=== PATIENT | female | born 2000 | race Caucasian/White ===

== ENCOUNTER 2023-07-26 01:22 | Emergency (ER) | payer OTHER, SELFPAY ==
[2023-07-26 01:26] VITALS: BP 137/86; PULSE 80; RESP 16; TEMP 36.8; O2SAT 98; BMI 22.9
--- NOTE | 2023-07-26 01:50 | ED_ITS ---
HPI - General Adult General Chief complaint: Allergic Reaction Stated complaint: Allergic reaction Time Seen by Provider: 07/26/23 01:31 Source: patient Mode of arrival: ambulatory Limitations: no limitations History of Present Illness HPI narrative: 22-year-old female presents the emergency department with a slight swelling of her upper lip, nasal labial area. Swelling started at 8:00 p.m., it is currently 1:30 a.m.. There is no swelling inside the mouth, tongue, itching of the throat, swelling of the eyelids, difficulty swallowing or breathing difficulties. No hives or other skin changes noted. She has had reactions like this in the past and it has been suspected that she is sensitive to cat and animal dander. [place]. No obvious new food exposures. No known history of anaphylaxis. She does not have access to an EpiPen. She took 2 Benadryl at 11:00 p.m., about 2 hours prior to coming to the emergency room and did not notice any significant improvement. She has access to Benadryl and Zyrtec at home. She is a college soon but lives with boyfriend and has plenty of available help. Past medical history is benign, denies major long-term health problems. Only home medication is an oral contraceptive. No known drug allergies. ROS notable just for the slight upper lip swelling as above, otherwise denies times 12 systems. Related Data Home Medications Medication Instructions Recorded Confirmed albuterol sulfate 90 mcg/actuation 2 inh inhalation Q8H PRN 07/26/23 07/26/23 aerosol inhaler norethin-e.estradiol triphasic 07/26/23 Allergies Allergy/AdvReac Type Severity Reaction Status Date / Time No Known Drug Allergies Allergy Verified 07/26/23 01:33 Exam Const: Vital Signs, click to edit/add: Vital Signs - 24 hr 07/26/23 01:26 Temperature 98.3 F Pulse Rate [Pulse Oximeter] 80 Respiratory Rate 16 Blood Pressure [Le ft Upper Arm] 137/86 Pulse Oximetry 98 Oxygen Delivery Me thod Room Air Documenting provider has reviewed patient's vital signs: yes Common normals: no apparent distress and alert General appearance: cooperative and comfortable HENMT: Common normals: normocephalic and head/scalp atraumatic Head and scalp: normocephalic and atraumatic Mouth: oral and palatal mucosa normal Throat: posterior oropharynx normal Other: No swelling to the true lip, in oral cavity, tongue, gums, posterior pharynx, uvula. There is a slight swelling of the perioral area along the left nasal labial fold and above the lip. It extends very slightly onto the cheek. No redness. Jaws not affected. Jaw opens and closes normally. Nose not affected. Eye: Common normals: conjunctivae normal General eye: normal appearance of both eyes Conjunctiva: conjunctiva(e) normal Neck & C-Spine: Common normals: full ROM and no lymphadenopathy Resp: Common normals: normal respiratory effort, no use of accessory muscles and clear to auscultation bilaterally Effort & inspection: able to speak in complete sentences Auscultation: clear to auscultation bilaterally Cardio: Common normals: regular rate, regular rhythm, S1 normal heart sound, S2 normal heart sound and no murmurs Rate: regular rate Rhythm: regular rhythm Heart sounds: S1 normal and S2 normal Neuro: Sensorium/orientation: alert Speech: speech normal Motor exam: no movement abnormalities noted Psych: Common normals: thought process normal Attitude: engaged Activity/motor behavior: appropriate eye contact Thought process: normal thought process Insight: insight good Judgement: judgment good Skin: Common normals: no rashes or lesions noted Narrative: No hives, broken skin, redness. General skin exam: no rashes or lesions noted Course Course Hospital Course: Counseled patient on diagnosis, mild allergic reaction, likely oral ingest chin or more likely inhalational product as she does have a history of animal sensitivity. There are no signs of anaphylaxis. She has not had access to an EpiPen. Discussed that the reaction fluctuate somewhat over the next couple of days. Encouraged a nondrowsy antihistamine 2 tablets once daily such as Claritin, Leona or Zyrtec. Benadryl at bedtime for the next 5 nights with Benadryl every 6 hours p.r.n. for increase in swelling. Okay to apply ice. Activity, heat will make the reaction increased slightly. Alarm symptoms reviewed such as swelling of the tongue, throat, itching of the airway, difficulty breathing would all be reasons to come to the ED and or call 911 if necessary. She verbalizes understanding and agreement. Vital Signs Vital signs: Initial Vital Signs Temperature 98.3 F 07/26/23 01:26 Temperature Source Temporal Artery Scan 07/26/23 01:26 Pulse Rate 80 07/26/23 01:26 Respiratory Rate 16 07/26/23 01:26 Blood Pressure 137/86 07/26/23 01:26 Blood Pressure Mean 103 07/26/23 01:26 Blood Pressure Position Supine 07/26/23 01:26 Pulse Oximetry 98 07/26/23 01:26 Oxygen Delivery Method Room Air 07/26/23 01:26 Vital Signs Temperature 98.3 F 07/26/23 01:26 Pulse Rate 80 07/26/23 01:26 Respiratory Rate 16 07/26/23 01:26 Blood Pressure 137/86 07/26/23 01:26 Pulse Oximetry 98 07/26/23 01:26 Oxygen Delivery Method Room Air 07/26/23 01:26 Temperature 98.3 F 07/26/23 01:26 Pulse Rate 80 07/26/23 01:26 Respiratory Rate 16 07/26/23 01:26 Blood Pressure 137/86 07/26/23 01:26 Pulse Oximetry 98 07/26/23 01:26 Oxygen Delivery Method Room Air 07/26/23 01:26 Discharge Plan Discharge Clinical Impression: Allergic reaction Patient Disposition: Home w/ Parent or Adult Condition: Stable Instructions: General Allergic Reaction (ED) Additional Instructions: As we discussed, you are having a very mild allergic reaction. Most likely this was either a food ingested or inhalational plant or animal product. This is very unlikely to progress. He did a great job of taking your Benadryl. Unfortunately, allergy testing is unlikely to be helpful at discovering because with such a mild reaction. As we discussed, the swelling may common go for the next few days. It will increase with activity, heat, and warm foods. I would like for you to take a nondrowsy antihistamine 2 pills once daily or 1 pill twice daily for the next 5 days. Examples of these are Claritin, Leona or Zyrtec and the generic equiva lents are just fine. At bedtime, I would like you to use 1 Benadryl tablet for the next 5 nights and also take Benadryl every 6 hours as needed if the swelling returns. It is okay to apply ice and rest for a few minutes as this will dramatically decrease the swelling also. If you notice difficulty breathing, swelling inside the throat or tongue, especially if not responding to medications and severe, come back to the emergency department. Activity Level: No Restrictions Discharge Diet: Regular Prescriptions: No Action albuterol sulfate 90 mcg/actuation HFA aerosol inhaler 2 inh inhalation Q8H PRN norethin-e.estradiol triphasic Stand Alone Forms: [employer] Info Instructions
== END 2023-07-26 02:12 | disposition home or self-care (01) ==
LOC: ED 01:56
PROVIDERS: Emergency Provider Family Medicine
DX: R22.0 Localized swelling, mass and lump, head (principal); T78.40XA Allergy, unspecified, initial encounter
CPT/HCPCS: 99282; 99283